=== PATIENT | female | born 1980 | race Caucasian/White ===

== ENCOUNTER 2018-04-26 11:08 | Day surgery (SDC) | payer OTHER | END 2018-04-26 16:15 | disposition home or self-care (01) | LOC: AMB-ENDOS 11:08 → CIR.AMB 11:08 | DX: D13.1 Benign neoplasm of stomach (principal) ==

== ENCOUNTER 2018-06-27 07:10 | Outpatient (CLI) | payer OTHER | END 2018-06-27 07:45 | disposition home or self-care (01) | LOC: LAB 07:10 | DX: R10.13 Epigastric pain (principal); E66.01 Morbid (severe) obesity due to excess calories; R73.09 Other abnormal glucose; E56.8 Deficiency of other vitamins ==